=== PATIENT | male | born 1940 | race Caucasian/White ===

== ENCOUNTER 2017-06-20 14:04 | Outpatient (CLI) | payer OTHER ==
[2017-06-20 14:33] LABS: Hematocrit 32.3 % (42.0-52.0); Mean Platelet Volume 8.5 fL (7.4-10.4); White Blood Cell (WBC) Count 6.1 thou/uL (4.8-10.8)
[2017-06-20 14:54] LABS: Anion Gap 13 mmol/L (10-20); BUN (Urea Nitrogen) 24 mg/dL (8.4-25.7); Calc. Creatinine Clearance 0 mL/min (70-130); Calcium 9.7 mg/dL (7.8-10.44); Carbon Dioxide 27 mmol/L (23-31); Chloride 104 mmol/L (98-107); Estimated GFR-MDRD 54
== END 2017-06-20 14:05 | disposition home or self-care (01) ==
LOC: LABBT 14:04
PROVIDERS: ATTEND Orthopaedic Surgery
DX: Z01.818 Encounter for other preprocedural examination (principal); S43.432A Superior glenoid labrum lesion of left shoulder, initial encounter
CPT/HCPCS: 80048; 85027

== ENCOUNTER 2017-06-22 10:55 | Day surgery (SDC) | payer OTHER ==
[2017-06-20 14:30] VITALS: BMI 24.5
[2017-06-22] MEDS ORDERED: Fentanyl 100 MCG/2 ML VIAL ONE (12:21)
[2017-06-22] MEDS ORDERED: Midazolam HCl 2 mg/2 ml Vial ONE (12:21)
[2017-06-22] MEDS ORDERED: CEFAZOLIN/Water 2 GM/20 ML SYRINGE ONE (12:29)
[2017-06-22] MEDS ORDERED: Bupivacaine/Epinephrine 0.25% 30 ML VIAL ONE (13:27)
[2017-06-22] MEDS ORDERED: Bupivacaine HCl 0.5%/Epinephrine 1:200,000/PF 30 ml Vial ONE (13:43)
[2017-06-22] MEDS ORDERED: Propofol 200 MG/20 ML VIAL ONE (13:51)
[2017-06-22] MEDS ORDERED: Dexamethasone 20 MG/5 ML VIAL ONE (13:51)
[2017-06-22] MEDS ORDERED: Ondansetron HCl/PF 4 MG/2 ML Vial ONE (13:51)
[2017-06-22] MEDS ORDERED: ePHEDrine/0.9% NaCl/PF SYRINGE 50 mg/10 ml ONE (13:51)
[2017-06-22] MEDS ORDERED: Glycopyrrolate 0.2 MG/ML 5 ML SYRINGE ONE (13:51)
[2017-06-22] MEDS ORDERED: PHENYLEPHRINE-NS 100 MCG/ML 10 ML SYRINGE ONE (13:51)
--- NOTE | 2017-06-22 19:36 | OP ---
DATE OF OPERATION: 06/22/2017 PREOPERATIVE DIAGNOSIS: Anterior and posterior labral tears of the left shoulder. POSTOPERATIVE DIAGNOSES: Anterior and posterior labral tears of the left shoulder with large rotator cuff tear of the left shoulder. PROCEDURE: 1. Arthroscopy of the left shoulder with repair of SLAP tear of the anterior and posterior labrum. 2. Open rotator cuff repair of the left shoulder. SURGEON: Berhane Castro M.D. ANESTHESIA: General. TECHNIQUE: The patient was given preoperative IV antibiotics, taken to the operating room, placed in the supine position. Satisfactory general anesthesia was performed. The patient was then placed in the right lateral decubitus position. All bony prominences were well-padded. The left upper extrem ity was placed in 15 pounds of traction of the left shoulder and upper extremity was sterilely preppe d and draped in the usual fashion. Initially, the shoulder was scoped through the posterior portal. The patient was noted to have some fibrillating cartilage in both over the glenoid and the humeral h ead. This was consistent with mild to moderate arthritis. The biceps tendon was not in the joint. The anterior and posterior portion of the labrum was probed and there were tears both anteriorly and posteriorly and these were repaired using the anterior and posterior portal and they were repaired us ing 2.9 PushLock anchors and using #2 FiberWire, 3 anchors were placed anteriorly and 3 anchors were placed posteriorly. After this repair was performed, the camera was turned superiorly and the patien t had complete rotator cuff tear with the supraspinatus tendon was completely torn. The scope was re moved and longitudinal incision was made over the lateral aspect of the shoulder, approximately 2 inc hes in length and the deltoid muscle was bluntly divided. There was large amount of scar tissue and synovial tissue that was debrided down to where the rotator cuff was identified, it could be easily m obilized. Once the scar tissue was removed and the rotator cuff was repaired with a double row using a 4.75 SwiveLock anchor with FiberTape, two of the SwiveLock anchors were placed in the medial row a nd two of the self-punching 4.75 anchors were used in the lateral row and this provided excellent rep air and fixation to the rotator cuff. The wounds were irrigated during the entire procedure. The wo und was closed using 2-0 Vicryl for the fascia over the deltoid muscle and 2-0 Vicryl for the fat and subcutaneous tissue, and skin was closed with 3-0 Rapide. The two portals anterior and posterior as pect of the shoulder was closed with 3-0 Rapide. A sterile dressing was applied, and the patient was placed in a shoulder immobilizer. He is awakened, extubated, and transferred to the recovery room i n stable condition. ESTIMATED BLOOD LOSS: 75 mL. COMPLICATIONS: None. DISCHARGE MEDICATIONS: [place] 10 one every 6 hours as needed for pain, #60. FOLLOWUP: Follow up in my office in 2 weeks.
== END 2017-06-22 17:45 | disposition home or self-care (01) ==
LOC: SDC 10:55
PROVIDERS: ATTEND Orthopaedic Surgery
PROC: 0MM24ZZ Reattachment of Left Shoulder Bursa and Ligament, Percutaneous Endoscopic Approach (ICD-10-PCS; principal; 2017-06-22)
DX: S43.432A Superior glenoid labrum lesion of left shoulder, initial encounter (principal); Z90.49 Acquired absence of other specified parts of digestive tract; Z90.79 Acquired absence of other genital organ(s); Z98.890 Other specified postprocedural states
CPT/HCPCS: 36416; 93005; 93010; C1713; J0670; J1100; J2250; J2405; J2704; J3010

== ENCOUNTER 2017-12-18 10:34 | Inpatient (IN) | payer OTHER ==
[2017-12-19 11:06] VITALS: BMI 27.3
[2018-01-09] MEDS ORDERED: Fentanyl 100 MCG/2 ML VIAL ONE ×2 (06:23→07:29)
[2018-01-09] MEDS ORDERED: Midazolam HCl 2 mg/2 ml Vial ONE (06:23)
[2018-01-09] MEDS ORDERED: CEFAZOLIN/Water 2 GM/20 ML SYRINGE ONE (06:26)
[2018-01-09 06:32] LABS: Hemoglobin 9.5 g/dL (14.0-18.0); Mean Corpuscular HGB CONC 33.9 g/dL (32.0-36.0); Mean Corpuscular Hemoglobin 28.3 pg (27.0-31.0); Mean Corpuscular Volume 83.6 fl (80.0-94.0); Mean Platelet Volume 7.2 fL (7.4-10.4); Platelet Count 230 thou/uL (130-400); RBC Distribution Width 12.9 % (11.5-14.5); Red Blood Cell (RBC) Count 3.34 mill/uL (4.70-6.10); White Blood Cell (WBC) Count 6.7 thou/uL (4.8-10.8)
[2018-01-09 06:45] LABS: Anion Gap 14 mmol/L (10-20); BUN (Urea Nitrogen) 18 mg/dL (8.4-25.7); Calc. Creatinine Clearance 74 mL/min (70-130); Calcium 9.7 mg/dL (7.8-10.44); Carbon Dioxide 23 mmol/L (23-31); Chloride 106 mmol/L (98-107); Estimated GFR-MDRD 76; Glucose 117 mg/dL (83-110); Potassium 4.6 mmol/L (3.5-5.1); Sodium 138 mmol/L (136-145)
[2018-01-09] MEDS ORDERED: Ketorolac Tromethamine 30 MG/ML VIAL IVP PRN (07:33)
[2018-01-09] MEDS ORDERED: Zolpidem Tartrate 5 MG TAB PO PRN (07:33)
[2018-01-09] MEDS ORDERED: traMADol HCl 50 MG TAB PO PRN ×3 (07:33→10:31)
[2018-01-09] MEDS ORDERED: Ondansetron HCl/PF 4 MG/2 ML Vial IVP PRN ×2 (07:33→10:08)
[2018-01-09] MEDS ORDERED: Ropivacaine 0.2% 550 ML 550 ML NERVE BLCK SCH (07:33)
[2018-01-09] MEDS ORDERED: HYDROcodone/Acetaminophen 5/325 mg Tablet PO PRN ×2 (07:33)
[2018-01-09] MEDS ORDERED: Promethazine HCl 25 MG/ML VIAL IM PRN ×2 (07:33→10:08)
[2018-01-09] MEDS ORDERED: Fentanyl 100 MCG/2 ML VIAL IV PRN (07:33)
[2018-01-09] MEDS ORDERED: Albumin 25% 100 ML ONE (08:06)
[2018-01-09 09:48] LABS: #Eosinphils 0.2 thou/uL (0.0-0.7); #Lymphocytes 1.4 thou/uL (1.20-3.40); #Monocytes 0.5 thou/uL (0.11-0.59); #Neutrophils 3.6 thou/uL (1.40-6.50); %Basophils 0.6 % (0.0-1.0); %Eosinophils 3.3 % (0.0-10.0); %Lymphocytes 24.6 % (21.0-51.0); %Monocytes 8.9 % (0.0-10.0); %Neutrophils 62.5 % (42.0-75.0); Hemoglobin 8.3 g/dL (14.0-18.0); Mean Corpuscular HGB CONC 33.4 g/dL (32.0-36.0); Mean Corpuscular Hemoglobin 27.8 pg (27.0-31.0); Mean Corpuscular Volume 83.3 fl (80.0-94.0); Platelet Count 165 thou/uL (130-400); RBC Distribution Width 12.8 % (11.5-14.5); Red Blood Cell (RBC) Count 2.98 mill/uL (4.70-6.10); White Blood Cell (WBC) Count 5.7 thou/uL (4.8-10.8)
[2018-01-09] MEDS ORDERED: Promethazine HCl 25 MG/ML VIAL SLOW IVP PRN (10:08)
[2018-01-09] MEDS ORDERED: HYDROcodone/Acetaminophen 10/325 mg Tablet PO PRN (10:31)
--- NOTE | 2018-01-09 11:47 | OP ---
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 PROCEDURE PERFORMED: Left reverse total shoulder replacement. SURGEON: Berhane Castro M.D. ANESTHESIA: General. TECHNIQUE: The patient was given preoperative IV antibiotics, taken to the operating room and placed in supine position. Satisfactory general anesthesia was performed. The patient was then placed in a beach chair position and the left shoulder and upper extremity was sterilely prepped and draped in usual fashion. Incision was made in the anterior aspect of the left shoulder approximately 5 inches in length in the deltopectoral interval. Blunt dissection was made down to the deltopectoral interva l. Cephalic vein was identified and was retracted laterally with the deltoid muscle. The clavipecto ral fascia was entered. The conjoined ligaments were identified. The pectoralis major tendon was fo und. Subscapularis tendon was sharply incised leaving 1 cm of the tendon attached to the lesser tube rosity. It was tagged and retracted medially. There were significant arthritic changes in the gleno humeral joint and the rotator cuff was completely torn and retracted medially away from the humeral h ead. The head was brought out and using intramedullary guide through the superior aspect of the nancy ral head. It was sequentially hand reamed up to a 14 mm. Cutting guide was then placed into the int ramedullary canal and cutting the humeral head with a 0 version. The head was then retracted out of the way. The soft tissue and the glenoid were excised sharply both anterior and posterior as well as the inferior and superior. There was quite a bit of generalized oozing from the OR for quite a bit of general oozing from all the structures. After the glenoid was cleaned off, a guide was used. A h ole was made in the center of the glenoid slightly inferior. The hole was made in the mid portion of the glenoid inferior to the equator and then was hand reamed, getting the glenoid prepared for the m etaglene, a 38 mm cementless metaglene was inserted and impacted onto the glenoid, 4.5 locking screws were placed superiorly and inferiorly nonlocking 4.5 screw was placed anteriorly. There was a cyst granulation tissue on the posterior aspect of the glenoid and would not hold a screw in there, so jus t three screws were used. The 38 mm glenosphere was then screwed into place and provided excellent f ixation. The proximal aspect of the humerus was then addressed. All of the previous suture and anch ors were removed. It was noted that around all of the anchors instead of bone was quite bit of granu lation tissue making cyst formation around the anchors. This was debrided. The proximal humerus was then prepared again in a 0 version the proximal aspect of the humerus was prepared for the E. sensor y prosthesis. The noncemented 14 modular humeral stem was inserted with excellent fixation. The mod ular eccentric size 1 was used and trials were used for the humeral PE cup. The +6 allowed for excel lent stability and good range of motion which was ultimately used. The shoulder joint was copiously irrigated with antibiotic solution and the wound was then closed, closing the subscapularis tendon us ing #2 Ethibond in interrupted [id number] sutures. Fat and subcutaneous tissue was closed with 0 Vicryl and skin was closed with skin virginie. Sterile dressing was applied. The patient was place d in a shoulder immobilizer. He was awakened, extubated, and transferred to recovery room in stable condition. ESTIMATED BLOOD LOSS: 650 mL. COMPLICATIONS: None. FLUIDS GIVEN: Patient will be given 2 units of packed red blood cells since he started with a hemogl obin of 9.5 and did lose 650 mL.
[2018-01-09] MEDS: HYDROcodone/Acetaminophen 10/325 mg Tablet PO PRN ×2 (14:31→20:45)
[2018-01-09] MEDS ORDERED: Lidocaine 1% PF 5 ML VIAL ONE (16:03)
[2018-01-09] MEDS ORDERED: Esmolol 100 MG/10 ML VIAL ONE (16:03)
[2018-01-09] MEDS ORDERED: Glycopyrrolate 0.2 MG/ML 5 ML SYRINGE ONE (16:03)
[2018-01-09] MEDS ORDERED: ePHEDrine/0.9% NaCl/PF SYRINGE 50 mg/10 ml ONE (16:03)
[2018-01-09] MEDS ORDERED: PROPOFOL 200 MG/20 ML VIAL ONE (16:03)
[2018-01-09] MEDS ORDERED: Ropivacaine 0.5% HCl/PF (150 MG/30 ML VIAL) ONE (16:23)
[2018-01-09] MEDS ORDERED: Ropivacaine 0.2% HCl/PF (40 MG/20 ML VIAL) ONE (16:23)
[2018-01-09] MEDS: Mirtazapine 30 MG TAB PO SCH (20:49)
[2018-01-10] MEDS: HYDROcodone/Acetaminophen 10/325 mg Tablet PO PRN ×3 (01:35→17:04)
[2018-01-10 05:32] LABS: Hemoglobin 8.1 g/dL (14.0-18.0)
[2018-01-10] MEDS: Glimepiride 4 MG TAB PO SCH (08:36)
[2018-01-10] MEDS: Alogliptin 25 MG TAB PO SCH (08:36)
[2018-01-10] MEDS: Lisinopril/Hydrochlorothiazide 10 mg/12.5 mg Tablet PO SCH (08:36)
[2018-01-10] MEDS: metFORMIN 500 MG TAB PO SCH ×2 (08:36→17:04)
[2018-01-10] MEDS: Mirtazapine 30 MG TAB PO SCH (20:45)
--- NOTE | 2018-01-10 23:53 | PRG ---
DATE OF SERVICE: 01/11/2018 HISTORY OF PRESENT ILLNESS: Mr. Villanueva is 1-day status post reverse total shoulder replacement, go t up with physical therapy twice today. He was fairly unsteady and was fairly high risk for fall. S tates that the pain pump has decreased pain in the shoulder, but he is still having to take [place] 10. The patient has been afebrile. PHYSICAL EXAMINATION: VITAL SIGNS: Blood pressure 118/69, pulse 112, respiratory rate 16, O2 satura tion 96% on room air. LABORATORY: Hemoglobin prior to surgery was 9.5. Patient was given a unit of packed red blood cells after surgery and his hemoglobin this morning was 8.1. The left upper extremity shows that dressing is clean, dry, and intact. He is able to flex and exten d his left hand well. Good peripheral pulses. The supraclavicular block is in place. Patient is too unsteady to safely go home this evening. We will continue to keep him here in the [facility] for additional physical therapy to gain more stability to decrease the chance of falling. Toyin ent and family are agreeable that plan on possibly discharging him tomorrow.
[2018-01-11 05:44] LABS: Hemoglobin 7.8 g/dL (14.0-18.0)
[2018-01-11] MEDS: metFORMIN 500 MG TAB PO SCH (08:56)
[2018-01-11] MEDS: Alogliptin 25 MG TAB PO SCH (08:57)
[2018-01-11] MEDS: Glimepiride 4 MG TAB PO SCH (08:57)
[2018-01-11] MEDS: Lisinopril/Hydrochlorothiazide 10 mg/12.5 mg Tablet PO SCH (09:04)
[2018-01-11 11:43] VITALS: BP 109/66; TEMP 98.5
--- NOTE | 2018-01-11 12:55 | DIS ---
HISTORY OF PRESENT ILLNESS: Please see admission history and physical. HOSPITAL COURSE: The patient was worked up medically prior to surgery. He was cleared for surgery, brought to operating room on the day of admission given perioperative IV antibiotics and underwent le ft reverse total shoulder replacement. The patient was placed in a shoulder immobilizer postoperativ karley. He had enough bleeding and his hemoglobin started out low enough. His preoperative hemoglobin was 9.5, so he was given a unit of packed red blood cells. The following day, his hemoglobin is 8.3 and it stayed fairly stable, it was 8.1 and 7.8. Vital signs remained stable. His last vital signs ; blood pressure is 116/65, respiratory rate 18, O2 saturation 96% on room air. The patient remained afebrile during the hospital course. The left upper extremity is neurovascularly intact. Dressing was changed prior to discharge. He william l continue with the shoulder immobilizer. Prescription was written for [place] 10 one every 6 hours as needed for pain, #60 with no refills. Follow up in my office in 1 week.
== END 2018-01-11 14:24 | disposition home or self-care (01) | DRG 483 ==
LOC: SURG A 01-09 05:43 → EDSTATUS 01-09 10:30 → SURG A 01-09 12:33
PROVIDERS: ADMIT Orthopaedic Surgery; ATTEND Orthopaedic Surgery
PROC: 0RRK00Z Replacement of Left Shoulder Joint with Reverse Ball and Socket Synthetic Substitute, Open Approach (ICD-10-PCS; principal; 2018-01-09)
PROC: 30233N1 Transfusion of Nonautologous Red Blood Cells into Peripheral Vein, Percutaneous Approach (ICD-10-PCS; 2018-01-09)
DX: M19.012 Primary osteoarthritis, left shoulder (principal); M75.120 Complete rotator cuff tear or rupture of unspecified shoulder, not specified as traumatic; E11.9 Type 2 diabetes mellitus without complications; I10 Essential (primary) hypertension
CPT/HCPCS: 36415; 36416; 36430; 80048; 85014; 85018; 85027; 86850; 86900; 86901; A4306; G8978-GP-CL; G8979-GP-CJ; G8987-GO-CL; G8988-GO-CJ; J1885; J2001; J2250; J2704; J2795; J3010; P9016; P9047

== ENCOUNTER 2017-12-19 10:48 | Outpatient (CLI) | payer OTHER ==
[2017-12-19 11:14] LABS: Hemoglobin 9.4 g/dL (14.0-18.0); Mean Corpuscular HGB CONC 34.5 g/dL (32.0-36.0); Mean Corpuscular Hemoglobin 28.6 pg (27.0-31.0); Mean Platelet Volume 6.8 fL (7.4-10.4); Platelet Count 273 thou/uL (130-400); RBC Distribution Width 12.6 % (11.5-14.5); Red Blood Cell (RBC) Count 3.28 mill/uL (4.70-6.10); White Blood Cell (WBC) Count 6.3 thou/uL (4.8-10.8)
[2017-12-19 11:35] LABS: Anion Gap 9 mmol/L (10-20); BUN (Urea Nitrogen) 15 mg/dL (8.4-25.7); Calc. Creatinine Clearance 0 mL/min (70-130); Calcium 9.1 mg/dL (7.8-10.44); Carbon Dioxide 24 mmol/L (23-31); Chloride 104 mmol/L (98-107); Estimated GFR-MDRD 78; Glucose 135 mg/dL (83-110); Potassium 4.3 mmol/L (3.5-5.1); Sodium 133 mmol/L (136-145)
--- NOTE | 2017-12-20 20:19 | EKG ---
Test Reason : Blood Pressure : / mmHG Vent. Rate : 073 BPM Atrial Rate : 073 BPM P-R Int : 180 ms QRS Dur : 132 ms QT Int : 410 ms P-R-T Axes : 058 -41 021 degrees QTc Int : 451 ms Normal sinus rhythm Left axis deviation Right bundle branch block Left ventricular hypertrophy with QRS widening Abnormal ECG When compared with ECG of 22-JUN-2017 12:17, No significant change was found Confirmed by JAMES ESCAMILLA (2) on 12/20/2017 8:19:30 PM Referred By: BLANCA Confirmed By:JAMES ESCAMILLA
== END 2017-12-19 10:49 | disposition home or self-care (01) ==
LOC: LABBT 10:48
PROVIDERS: ATTEND Orthopaedic Surgery
DX: Z01.818 Encounter for other preprocedural examination (principal); M75.102 Unspecified rotator cuff tear or rupture of left shoulder, not specified as traumatic; M19.012 Primary osteoarthritis, left shoulder
CPT/HCPCS: 80048; 85027; 93005; 93010